=== PATIENT | male | born 1955 | race Caucasian/White ===

== ENCOUNTER → 2021-10-25 | Day surgery (SDC) | payer MEDICARE, OTHER ==
[~2021-10-25] MED LIST: Ketamine 200 MG/20 ML MDV ONE; Phenylephrine 1% 10 MG/ML SDV ONE; Propofol 200 MG/20 ML SDV ONE; fentaNYL 100 MCG/2 ML SDV ONE
[2021-10-25] MEDS: Lactated Ringers 1,000 ML IV SCH (07:13)
== END ==
LOC: CC.SDS 07:01
PROVIDERS: ATTEND Family Medicine
DX: Z12.11 Encounter for screening for malignant neoplasm of colon (principal); K62.1 Rectal polyp; N40.1 Benign prostatic hyperplasia with lower urinary tract symptoms; R35.1 Nocturia; I10 Essential (primary) hypertension; E78.5 Hyperlipidemia, unspecified; Z88.0 Allergy status to penicillin; Z88.2 Allergy status to sulfonamides; Z79.899 Other long term (current) drug therapy; Z98.890 Other specified postprocedural states
CPT/HCPCS: 00812; J2370; J2704; J3010; J7120